=== PATIENT | female | born 1990 | race Caucasian/White ===

== ENCOUNTER 2022-05-06 17:59 | Inpatient (IN) | payer BC ==
[~2022-05-06] VITALS: Ht 198.1 cm; Wt 99.8 kg
[2022-05-06 18:03] VITALS: BP_SYST 128
--- NOTE | 2022-05-06 18:08 | NUR ---
BIBS WITH C/C OF VISION CHANGE TO LEFT EYE. PT STATES EVERYTHING WAS PINK/BROWN IN COLOR FROM LEFT EYE. NORMAL VISION IN RIGHT. LASTED FOR APPROXIMATELY 1 MINUTE. REPORTS THE PINK VISION FROM LEFT EYE HAPPENED AGAIN TODAY AT APPROXIMATELY 1200 WITH LEFT SIDED HEADACHE AND NUMBNESS FROM LEFT TEMPORAL AREA RADIATING TO LEFT SIDE OF JAW. NO FACIAL DROOP NOTED. FACIAL MUSCLES INTACT WITH NO DROOP, ABLE TO RAISE BOTH EYEBROWS, SMILES WITH SYMMETRY. DENIES ANY CURRENT VISUAL DISTURBANCES. PT ALSO REPORTS RINGING FROM LEFT EAR. PT TOOK IBUPROFEN 800 MG AT 1400.
--- NOTE | 2022-05-06 18:18 | NUR ---
PLACED IN BED 8, DR. WEI SEEN AND ASSESSED PT.
--- NOTE | 2022-05-06 18:19 | NUR ---
REPORT GIVEN TO HERBERT MCKEON.
--- NOTE | 2022-05-06 18:20 | NUR ---
Pt A&Ox4, VSS, respirations even and unlabored, ambulatory to restroom, no facial drop noted, intact speech, denies blurred vision at this time, will cont to monitor.
[2022-05-06 19:07] LABS: BASOPHILS # (AUTO) 0.2 K/uL (0.0-0.2); BASOPHILS % (AUTO) 2.1 % (0.0-2.0); EOSINOPHILS # (AUTO) 0.1 K/uL (0.0-0.4); EOSINOPHILS % (AUTO) 1.3 % (0.0-4.0); HEMATOCRIT 32.6 % (36-48); LYMPHOCYTES % (AUTO) 26.6 % (20.5-51.5); MEAN CORPUSCULAR VOLUME 68 fL (79.0-98.0); MONOCYTES # (AUTO) 0.4 K/uL (0.0-1.0); NEUTROPHILS # (AUTO) 4.7 K/uL (1.8-7.7); PLATELET COUNT (AUTO) 385 K/uL (130-430); RED BLOOD CELL COUNT(AUTO) 4.79 MIL/uL (4.2-6.2); RED CELL DISTRIBUTION WIDTH 18.5 % (9.0-15.0); WHITE BLOOD COUNT (AUTO) 7.4 K/uL (4.8-10.8)
[2022-05-06 19:24] LABS: ANION GAP 8 (5-15); CALCIUM 8.9 mg/dL (8.4-11.0); CHLORIDE 105 mmol/L (98-107); CREATININE 0.95 mg/dL (0.55-1.30); GLUCOSE 105 mg/dL (70-99); POTASSIUM 4.2 mmol/L (3.5-5.1); SODIUM SERUM 141 mmol/L (136-145); UREA NITROGEN, BLOOD 7 mg/dL (8-21)
[2022-05-06 19:33] LABS: ALANINE AMINOTRANSFERASE 22 U/L (12-78); ALBUMIN 3.7 g/dL (3.4-4.8); ASPARTATE AMINOTRANSFERASE 13 U/L (10-37); TOTAL BILIRUBIN 0.5 mg/dL (0.0-1.0)
--- NOTE | 2022-05-06 19:44 | NUR ---
Received report from rocío GODINEZ Pt resting comfortably in bed AOX4 VSS Able to make needs known NAD at this time Will continue to monitor
[2022-05-06 19:45] LABS: GFR AFRICAN AMERICAN 87 mL/min (>90)
[2022-05-06] MEDS ORDERED: SUMAtriptan SUCCINATE 6 MG/0.5 ML VIAL SUBCUT ONE (20:00)
[2022-05-06] MEDS ORDERED: KETOROLAC TROMETHAMINE 15 MG VIAL IVP PRN (22:00)
--- NOTE | 2022-05-06 22:04 | NUR ---
Admit bed requested Patient will be admitted to care of . Admitted to TELE unit. Diagnosis INTRACTABLE HEADACHE Inpatient (Yes or No) YES Observation (Yes or No) NO Orientation concerns or request close to nursing station (Yes or No) NO Covid Status PENDING On vent or bipap NO Isolation requirements NO Needs a sitter NO From Home (Yes or if No enter name of facility) YES Requires Dialysis (Yes or No) NO Med Rec Completed (Yes of No) PENDING
[2022-05-06] MEDS ORDERED: ONDANSETRON HCL 4 MG/2 ML VIAL IVP PRN (22:45)
[2022-05-06] MEDS: AMITRIPTYLINE HCL 25 MG TABLET (ELAVIL) PO SCH (23:00)
--- NOTE | 2022-05-07 00:08 | NUR ---
Patient will be admitted to care of Dr. Gonzáles. Admitted to Tele unit. Will go to room 110A. Belongings list completed. Complete and up to date summary report printed. SBAR report to be given at bedside with opportunity for questions.
[2022-05-07] MEDS: AMITRIPTYLINE HCL 25 MG TABLET (ELAVIL) PO SCH ×2 (01:30→20:53)
[2022-05-07 04:00] VITALS: BP_SYST 128
--- NOTE | 2022-05-07 04:00 | NUR ---
OPENING NOI9TE PT RECEIVED FROM ED. PT ADMITTED FOR C/C OF VISION CHANGE TO LEFT EYE. PT STATES EVERYTHING WAS PINKISH IN COLOR FROM LEFT EYE AND HER FACE FELT NUMB AND THIS WAS TODAY AT APPROXIMATELY 1200 WITH LEFT SIDED HEADACHE AND NUMBNESS FROM LEFT TEMPORAL AREA RADIATING TO LEFT SIDE OF JAW. NEURO CHECKS COMPLETED WITH NO DEFICIT NOTED. PT DENIES ANY CURRENT VISUAL DISTURBANCES. PT ALSO REPORTS RINGING FROM LEFT EAR AT THE TIME OF THE VISION CHANGED BUT DENIES ANY RINGING IN THE EAR CURRENTLY. PT AOX4, HAD 20G IV IN THE RIGHT AC SALINE LOCK. PT ON TELE MONITORY AT SR @ 82 ON R/A WITH SAT'S AT 100%. PT ABLE HAS BRP. ALL SAFETY MEASURES IN [facility] WILL CONTINUE TO MONITOR
--- NOTE | 2022-05-07 04:00 | NUR ---
ADMITTING NOTE PT RECEIVED FROM ED. PT ADMITTED FOR C/C OF VISION CHANGE TO LEFT EYE. PT STATES EVERYTHING WAS PINKISH IN COLOR FROM LEFT EYE AND HER FACE FELT NUMB AND THIS WAS TODAY AT APPROXIMATELY 1200 WITH LEFT SIDED HEADACHE AND NUMBNESS FROM LEFT TEMPORAL AREA RADIATING TO LEFT SIDE OF JAW. NEURO CHECKS COMPLETED WITH NO DEFICIT NOTED. PT DENIES ANY CURRENT VISUAL DISTURBANCES. PT ALSO REPORTS RINGING FROM LEFT EAR AT THE TIME OF THE VISION CHANGED BUT DENIES ANY RINGING IN THE EAR CURRENTLY. PT AOX4, HAD 20G IV IN THE RIGHT AC SALINE LOCK. PT ON TELE MONITORY AT SR @ 82 ON R/A WITH SAT'S AT 100%. PT ABLE HAS BRP. ALL SAFETY MEASURES IN [facility] WILL CONTINUE TO MONITOR
[2022-05-07 08:00] VITALS: BP_SYST 112
[2022-05-07] MEDS ORDERED: LEVO100T PO (09:46)
[2022-05-07] MEDS ORDERED: MONT10TA22 (09:47)
[2022-05-07] MEDS ORDERED: MONT-40 PO (09:47)
[2022-05-07] MEDS ORDERED: ALBU2.5V7 INH (09:48)
[2022-05-07] MEDS: ENOXAPARIN SODIUM 40 MG/0.4 ML SYRINGE SUBCUT SCH (09:50)
[2022-05-07] MEDS ORDERED: IBUPROFEN 800 MG TABLET PO PRN (11:00)
[2022-05-07] MEDS ORDERED: LEVOTHYROXINE SODIUM 0.1 MG TABLET PO ONE (11:15)
[2022-05-07] MEDS ORDERED: FIORCET PO PRN (14:30)
[2022-05-07] MEDS ORDERED: EXCEDRIN EXTRA STRENGTH PO PRN (14:45)
--- NOTE | 2022-05-07 19:21 | NUR ---
0800: C/O NUMBNESS LEFT SIDE OF THE FACE. SCHEDULE FOR MRI TODAY. 1200: PRN MED FOR PAIN INEFFECTIVE, UNABLE TO OBTAIN NEW PRN FOR PAIN DUE TO POSSIBLE SIDE EFFECT OF DIZZINESS OR DROWSY. WILL CONTINUE TO REASSESS PATIENT PNR. 1600: DR. SULLIVAN SAW PATIENT MADE AWARE OF MRI RESULT, TO RESUME HOME MEDICATION AND START EXCEDRIN PRN FOR HEADACH. 1700: F/U TO SEE IF DR. Nneka BAEZA WILL SEE PATIENT TONIGHT. 1900: ENDORSE PATIENT TO PM SHIFT NURSE.
[2022-05-07 20:12] VITALS: BP_SYST 125
[2022-05-07] MEDS ORDERED: SUMAtriptan SUCCINATE 50 MG TABLET PO ONE (20:15)
[2022-05-07] MEDS ORDERED: MONTELUKAST 10 MG TABLET PO SCH ×2 (21:00)
[2022-05-08 00:30] VITALS: BP_SYST 102
[2022-05-08] MEDS ORDERED: LEVOTHYROXINE SODIUM 0.1 MG TABLET PO SCH ×2 (07:00)
[2022-05-08 08:35] VITALS: BP_SYST 110
--- NOTE | 2022-05-08 08:35 | NUR ---
Patient stable; resting comfortably in bed with no complaint of headache at this time.
[2022-05-08] MEDS: ENOXAPARIN SODIUM 40 MG/0.4 ML SYRINGE SUBCUT SCH (08:56)
--- NOTE | 2022-05-08 08:56 | NUR ---
Scheduled subq medication given per order. Patient stable at this time.
[2022-05-08 09:25] LABS: TOTAL IRON BIND. CAPACITY 425 ug/dL (250-450)
[2022-05-08 12:00] VITALS: BP_SYST 127
--- NOTE | 2022-05-08 12:40 | NUR ---
Patient stable; resting comfortably in bed with no distress noted and no complaint of headache.
--- NOTE | 2022-05-08 15:25 | NUR ---
Patient ambulating in hallway.
--- NOTE | 2022-05-08 15:52 | NUR ---
DISCHARGE PLANNING Called & spoke with Dr Osborne, states coming in to see her, plan to dc home if stable.
[2022-05-08 16:30] VITALS: BP_SYST 123
--- NOTE | 2022-05-08 16:30 | NUR ---
Patient stable; resting comfortably in bed with no distress noted and no complaint of headache.
[2022-05-08 18:26] VITALS: BP_SYST 123
--- NOTE | 2022-05-08 18:55 | NUR ---
Discharge instructions / discharge Both written and verbal discharge instructions given to patient. Encouraged to follow up with PCP in 1 week. Written prescription for imitrex and tablets given to patient as well. All questions and concerns were addressed. Patient verbalized understanding. Peripheral IV removed intact with no active bleeding; pressure dressing applied to site. Telemetry box removed, cleaned and returned to patient care secretary. Patient discharged to home in stable condition. Exited hospital with all belongings, accompanied by .
[2022-05-09 07:06] LABS: FOLATE (FOLIC ACID) 7.4 ng/mL (>3.0)
== END 2022-05-08 18:51 | disposition home or self-care (01) | DRG 103 ==
LOC: SED 17:59 → STU 22:03
PROVIDERS: ADMIT Family Medicine; ATTEND Family Medicine
DX: G43.909 Migraine, unspecified, not intractable, without status migrainosus (principal); J45.909 Unspecified asthma, uncomplicated; D64.9 Anemia, unspecified; Z20.822 Contact with and (suspected) exposure to COVID-19; E03.9 Hypothyroidism, unspecified; Z88.0 Allergy status to penicillin; Z79.899 Other long term (current) drug therapy; Z90.49 Acquired absence of other specified parts of digestive tract
CPT/HCPCS: 36415; 70450-TC; 70551; 76376; 80053; 82607; 82728; 82746; 83540; 83550; 84484; 85025; 85651-TC; 96372; 99285; G0378; J1650; J1885; J3030